=== PATIENT | male | born 1975 | race Two or more races ===

== ENCOUNTER 2024-10-07 19:07 | Inpatient (IN) | payer OTHER ==
[~2024-10-07] VITALS: Ht 162.6 cm; Wt 77.3 kg
[2024-10-07] MEDS: FAMOTIDINE 20 MG/2 ML VIAL IVP ONE (20:31)
[2024-10-07] MEDS: SODIUM CHLORIDE 0.9% 1,000 ML IV ONE (20:31)
[2024-10-07] MEDS: ONDANSETRON HCL 4 MG/2 ML VIAL IVP ONE (20:31)
[2024-10-07 20:33] LABS: BASOPHILS % (AUTO) 0.9 % (0.0-2.0); EOSINOPHILS % (AUTO) 0.7 % (1.0-6.0); HEMATOCRIT 45.1 % (41-53); HEMOGLOBIN 15.1 g/dL (13.5-17.5); LYMPHOCYTES # (AUTO) 1.9 K/uL (1.0-4.8); LYMPHOCYTES % (AUTO) 26.3 % (22.0-44.0); MEAN CORPUSCULAR HEMOGLOBIN 29.4 pg (26.0-34.0); MEAN CORPUSCULAR HGB CONC 33.5 G/dL (31.0-37.0); MEAN CORPUSCULAR VOLUME 88 fL (80-100); MONOCYTES # (AUTO) 0.6 K/uL (0.1-1.0); MONOCYTES % (AUTO) 8.4 % (2.0-9.0); NEUTROPHILS # (AUTO) 4.7 K/uL (1.8-7.7); NEUTROPHILS % (AUTO) 63.7 % (40.0-70.0); PLATELET COUNT (AUTO) 269 K/uL (150-450); RED BLOOD CELL COUNT(AUTO) 5.14 MIL/uL (4.50-5.90); RED CELL DISTRIBUTION WIDTH 14.9 % (11.5-14.5); WHITE BLOOD COUNT (AUTO) 7.4 K/uL (4.5-11.0)
[2024-10-07] MEDS: ChlordiazePOXIDE HCL 25 MG CAPSULE PO ONE (20:35)
[2024-10-07 20:42] LABS: ANION GAP 10 mmol/L (8-16); CALCIUM, TOTAL 8.6 mg/dL (8.8-10.5); CARBON DIOXIDE 27 mmol/L (22-29); CHLORIDE 100 mmol/L (98-107); CREATININE 0.87 mg/dL (0.60-1.30); GLOMERULAR FILTR. RATE CALC > 60 mL/min (>60); GLUCOSE,RANDOM 104 mg/dL (70-110); POTASSIUM 3.2 mmol/L (3.5-5.1); SODIUM SERUM 137 mmol/L (136-145); UREA NITROGEN, BLOOD 13 mg/dL (7-18)
[2024-10-07 20:46] LABS: ALANINE AMINOTRANSFERASE 102 U/L (12-78); ALBUMIN 3.3 g/dL (3.4-5.0); ALKALINE PHOSPHATASE 114 U/L (46-116); ASPARTATE AMINOTRANSFERASE 90 U/L (15-37); BILIRUBIN,TOTAL 1.4 mg/dL (0.1-1.0); LIPASE 65 U/L (16-77); TOTAL PROTEIN, SERUM 7.3 g/dL (6.4-8.2)
[2024-10-07 20:49] LABS: ALCOHOL, BLOOD (SERUM) < 3 mg/dL (0-10)
[2024-10-07] MEDS ORDERED: IOHEXOL 350 MG/ML 100 ML VIAL ONE (20:52)
[2024-10-07] MEDS ORDERED: SODIUM CHLORIDE 0.9% 100 ML ONE (20:52)
[2024-10-07] MEDS ORDERED: 0.9% SODIUM CHLORIDE 10 ML SYRINGE IVP ONE (20:53)
[2024-10-07] MEDS ORDERED: HYDROCODONE/ACETAMINOPHEN 5-325 MG TABLET PO PRN (21:45)
[2024-10-07] MEDS ORDERED: ZOLPIDEM TARTRATE 5 MG TABLET PO PRN (21:45)
[2024-10-07] MEDS ORDERED: ONDANSETRON HCL 4 MG/2 ML VIAL IVP PRN (21:45)
[2024-10-07] MEDS ORDERED: BISACODYL 10 MG RECTAL RECTAL SUPPOSITORY PR PRN (21:45)
[2024-10-07] MEDS ORDERED: ACETAMINOPHEN 325 MG TABLET PO PRN (21:45)
[2024-10-07] MEDS ORDERED: MORPHINE SULFATE 2 MG/ML SYRINGE IVP PRN (21:45)
[2024-10-07] MEDS ORDERED: ChlordiazePOXIDE HCL 25 MG CAPSULE PO PRN (21:45)
[2024-10-07] MEDS ORDERED: MAGNESIUM HYDROXIDE SUSPENSION 30 ML UDCUP PO PRN (21:45)
[2024-10-07 21:59] LABS: COVID AG,FIA SOURCE NASAL SWAB
[2024-10-07 22:27] LABS: SARS-COV2 (COVID) ANTIGEN,FIA Negative (Negative)
[2024-10-07] MEDS: MAGNESIUM SULFATE 2 GM, MVI, ADULT NO.1 WITH VIT K 10 ML, THIAMINE 100 MG, FOLIC ACID 1... IV ONE (23:55)
[2024-10-07] MEDS: POTASSIUM CHLORIDE 20 MEQ ER TABLET PO ONE (23:55)
[2024-10-08] MEDS: HEPARIN SODIUM,PORCINE 5,000 UNITS/ML VIAL SQ SCH
[2024-10-08 03:19] VITALS: BP 155/92; PULSE 57; RESP 17; TEMP 98.2; O2SAT 98
[2024-10-08] MEDS ORDERED: ChlordiazePOXIDE HCL 25 MG CAPSULE PO PRN (07:00)
[2024-10-08 07:39] VITALS: BP 121/76; PULSE 74; RESP 20; TEMP 98.6; O2SAT 97
[2024-10-08 08:08] LABS: BASOPHILS % (AUTO) 1.1 % (0.0-2.0); HEMATOCRIT 43.8 % (41-53); HEMOGLOBIN 14.8 g/dL (13.5-17.5); LYMPHOCYTES # (AUTO) 1.2 K/uL (1.0-4.8); LYMPHOCYTES % (AUTO) 25.8 % (22.0-44.0); MEAN CORPUSCULAR HEMOGLOBIN 29.9 pg (26.0-34.0); MEAN CORPUSCULAR HGB CONC 33.7 G/dL (31.0-37.0); MEAN CORPUSCULAR VOLUME 89 fL (80-100); MONOCYTES # (AUTO) 0.5 K/uL (0.1-1.0); NEUTROPHILS # (AUTO) 2.8 K/uL (1.8-7.7); NEUTROPHILS % (AUTO) 62.1 % (40.0-70.0); PLATELET COUNT (AUTO) 258 K/uL (150-450); RED BLOOD CELL COUNT(AUTO) 4.95 MIL/uL (4.50-5.90); RED CELL DISTRIBUTION WIDTH 14.9 % (11.5-14.5); WHITE BLOOD COUNT (AUTO) 4.5 K/uL (4.5-11.0)
[2024-10-08 08:20] LABS: ANION GAP 7 mmol/L (8-16); CALCIUM, TOTAL 8.2 mg/dL (8.8-10.5); CARBON DIOXIDE 28 mmol/L (22-29); CHLORIDE 104 mmol/L (98-107); CREATININE 0.79 mg/dL (0.60-1.30); GLOMERULAR FILTR. RATE CALC > 60 mL/min (>60); GLUCOSE,RANDOM 103 mg/dL (70-110); POTASSIUM 3.6 mmol/L (3.5-5.1); SODIUM SERUM 139 mmol/L (136-145); UREA NITROGEN, BLOOD 7 mg/dL (7-18)
[2024-10-08] MEDS ORDERED: PANTOPRAZOLE SODIUM 40 MG DR TABLET PO SCH (09:00)
[2024-10-08] MEDS: ChlordiazePOXIDE HCL 25 MG CAPSULE PO SCH (09:24)
[2024-10-08] MEDS: DOCUSATE SODIUM 100 MG CAPSULE PO SCH (09:24)
[2024-10-08] MEDS: PANTOPRAZOLE SODIUM 40 MG/VIAL IVP SCH (09:24)
[2024-10-08 09:54] VITALS: BP 135/80; PULSE 62; RESP 17; TEMP 98.8; O2SAT 98
[2024-10-08] MEDS ORDERED: SODIUM CHLORIDE 0.9% 500 ML IV ONE (10:52)
[2024-10-08] MEDS: PIPERACILLIN/TAZO 3.375 GM/D5W 50 ML IV SCH (11:07)
[2024-10-08 11:23] VITALS: BP 131/81; PULSE 72; RESP 18; TEMP 98.3; O2SAT 100
[2024-10-08 19:24] VITALS: BP 138/89; PULSE 63; RESP 18; TEMP 98.6; O2SAT 99
[2024-10-08] MEDS: DEXTROSE 5%-0.45% SODIUM CHL 1,000 ML IV SCH (21:06)
[2024-10-09 04:33] VITALS: BP 134/83; PULSE 62; RESP 18; TEMP 98.2; O2SAT 96
[2024-10-09 06:43] LABS: BASOPHILS % (AUTO) 0.8 % (0.0-2.0); EOSINOPHILS % (AUTO) 2.5 % (1.0-6.0); HEMATOCRIT 45.2 % (41-53); HEMOGLOBIN 15.4 g/dL (13.5-17.5); LYMPHOCYTES # (AUTO) 1.6 K/uL (1.0-4.8); LYMPHOCYTES % (AUTO) 28.7 % (22.0-44.0); MEAN CORPUSCULAR HGB CONC 33.9 G/dL (31.0-37.0); MEAN CORPUSCULAR VOLUME 88 fL (80-100); MONOCYTES # (AUTO) 0.5 K/uL (0.1-1.0); MONOCYTES % (AUTO) 8.5 % (2.0-9.0); NEUTROPHILS # (AUTO) 3.3 K/uL (1.8-7.7); NEUTROPHILS % (AUTO) 59.5 % (40.0-70.0); PLATELET COUNT (AUTO) 232 K/uL (150-450); RED BLOOD CELL COUNT(AUTO) 5.12 MIL/uL (4.50-5.90); RED CELL DISTRIBUTION WIDTH 14.9 % (11.5-14.5); WHITE BLOOD COUNT (AUTO) 5.6 K/uL (4.5-11.0)
[2024-10-09 07:17] LABS: SODIUM SERUM 137 mmol/L (136-145)
[2024-10-09 07:27] LABS: ANION GAP 9 mmol/L (8-16); CARBON DIOXIDE 28 mmol/L (22-29); CHLORIDE 100 mmol/L (98-107); CREATININE 0.85 mg/dL (0.60-1.30); GLOMERULAR FILTR. RATE CALC > 60 mL/min (>60); GLUCOSE,RANDOM 96 mg/dL (70-110); POTASSIUM 2.9 mmol/L (3.5-5.1); UREA NITROGEN, BLOOD 8 mg/dL (7-18)
[2024-10-09 07:28] LABS: CALCIUM, TOTAL 8.5 mg/dL (8.8-10.5)
[2024-10-09 07:59] VITALS: BP 128/78; PULSE 66; RESP 18; TEMP 98.6; O2SAT 99
[2024-10-09] MEDS ORDERED: SODIUM CHLORIDE 0.9% 250 ML IV ONE (08:41)
[2024-10-09] MEDS: POTASSIUM CHL 10 MEQ/WATER 50 ML IV PRN (08:43)
[2024-10-09] MEDS ORDERED: MAGNESIUM SULFATE 2 GM/WATER 50 ML IV PRN (11:15)
[2024-10-09] MEDS ORDERED: MAGNESIUM OXIDE 400 MG TABLET PO PRN (11:15)
[2024-10-09] MEDS ORDERED: MAGNESIUM SULFATE 4 GM/WATER 100 ML IV PRN (11:15)
[2024-10-09 13:13] LABS: ALBUMIN 3.1 g/dL (3.4-5.0)
[2024-10-09 16:52] VITALS: BP 130/88; PULSE 77; RESP 18; TEMP 98.5; O2SAT 98
[2024-10-09] MEDS ORDERED: SODIUM CHLORIDE 0.9% 500 ML IV ONE (18:17)
[2024-10-09 20:26] VITALS: BP 126/84; PULSE 67; RESP 18; TEMP 98.2; O2SAT 99
[2024-10-10 06:36] LABS: BASOPHILS % (AUTO) 0.6 % (0.0-2.0); EOSINOPHILS % (AUTO) 4.2 % (1.0-6.0); HEMOGLOBIN 15.5 g/dL (13.5-17.5); LYMPHOCYTES # (AUTO) 2.1 K/uL (1.0-4.8); MEAN CORPUSCULAR HEMOGLOBIN 30.2 pg (26.0-34.0); MEAN CORPUSCULAR HGB CONC 33.7 G/dL (31.0-37.0); MEAN CORPUSCULAR VOLUME 90 fL (80-100); MONOCYTES # (AUTO) 0.5 K/uL (0.1-1.0); MONOCYTES % (AUTO) 8.3 % (2.0-9.0); NEUTROPHILS # (AUTO) 3.2 K/uL (1.8-7.7); NEUTROPHILS % (AUTO) 52.9 % (40.0-70.0); PLATELET COUNT (AUTO) 231 K/uL (150-450); RED BLOOD CELL COUNT(AUTO) 5.13 MIL/uL (4.50-5.90); RED CELL DISTRIBUTION WIDTH 15.3 % (11.5-14.5)
[2024-10-10 06:49] LABS: ANION GAP 9 mmol/L (8-16); CALCIUM, TOTAL 8.8 mg/dL (8.8-10.5); CARBON DIOXIDE 29 mmol/L (22-29); CHLORIDE 101 mmol/L (98-107); CREATININE 0.83 mg/dL (0.60-1.30); GLOMERULAR FILTR. RATE CALC > 60 mL/min (>60); GLUCOSE,RANDOM 93 mg/dL (70-110); POTASSIUM 3.3 mmol/L (3.5-5.1); SODIUM SERUM 139 mmol/L (136-145); UREA NITROGEN, BLOOD 5 mg/dL (7-18)
[2024-10-10] MEDS ORDERED: ChlordiazePOXIDE HCL 10 MG CAPSULE PO PRN (07:00)
[2024-10-10 07:40] VITALS: BP 126/80; PULSE 64; RESP 18; TEMP 98.5; O2SAT 96
[2024-10-10] MEDS: ChlordiazePOXIDE HCL 10 MG CAPSULE PO SCH (09:48)
[2024-10-10] MEDS: POTASSIUM CHLORIDE 20 MEQ ER TABLET PO PRN (11:26)
[2024-10-10] MEDS ORDERED: ACET-2247 PO (12:38)
[2024-10-10] MEDS ORDERED: AMOX1TAB15 PO (12:54)
[2024-10-10] MEDS ORDERED: PANT-31 PO (12:54)
[2024-10-10] MEDS ORDERED: ONDA-104 PO (12:55)
[2024-10-10 13:11] VITALS: BP 128/88; PULSE 80; RESP 14; TEMP 97.8; O2SAT 68
[2024-10-11] MEDS ORDERED: ChlordiazePOXIDE HCL 10 MG CAPSULE PO PRN (07:00)
== END 2024-10-10 15:00 | DRG 392 ==
LOC: EMS 19:07 → EDH 22:21 → 6S 10-08 02:20 → 6N 10-08 07:53
PROVIDERS: ADMIT Internal Medicine; ATTEND Internal Medicine
PROC: GZ56ZZZ Individual Psychotherapy, Supportive (ICD-10-PCS; principal; 2024-10-10)
DX: K52.9 Noninfective gastroenteritis and colitis, unspecified (principal); R45.851 Suicidal ideations; F10.139 Alcohol abuse with withdrawal, unspecified; F33.0 Major depressive disorder, recurrent, mild; K29.20 Alcoholic gastritis without bleeding; F41.9 Anxiety disorder, unspecified; Z20.822 Contact with and (suspected) exposure to COVID-19; Y90.0 Blood alcohol level of less than 20 mg/100 ml; Z79.899 Other long term (current) drug therapy; E87.6 Hypokalemia
CPT/HCPCS: 74177; 80048; 80076; 82040; 83690; 83735; 84132; 85025; 99285; G0378; G0480; J1644; J2405; J2470; J2543; J3411; J3475; J3480; J3490; J7030; J7040; J7050